=== PATIENT | female | born 1995 | race Caucasian/White ===

== ENCOUNTER 2018-10-04 15:23 | Day surgery (SDC) | payer MEDICAID ==
[~2018-10-04] VITALS: Ht 170.2 cm; Wt 88.9 kg
[~2018-10-04 15:23] MED LIST: None per pt
[2018-10-04] MEDS ORDERED: LACTATED RINGERS 1,000 ML IV SCH (15:52)
[2018-10-04 15:53] VITALS: BP 135/57
[2018-10-04 16:18] LABS: HCG UR SG 1.018 (1.003-1.030)
[2018-10-04] MEDS ORDERED: BUPIVACAINE/EPI 0.5% 1:200K ONE (17:58)
[2018-10-04] MEDS ORDERED: MIDAZOLAM 1 MG/ML, 2ML ONE (18:24)
[2018-10-04] MEDS ORDERED: FENTANYL PF 250 MCG/5ML ONE (18:24)
[2018-10-04] MEDS ORDERED: ONDANSETRON 2MG/ML, 2ML ONE (18:25)
[2018-10-04] MEDS ORDERED: DEXAMETHASONE 4 MG/ML, 1ML ONE (18:25)
[2018-10-04] MEDS ORDERED: PROPOFOL 10 MG/ML, 20ML ONE (18:26)
[2018-10-04] MEDS ORDERED: SUCCINYLCHOLINE 20 MG/ML, 10ML ONE (18:26)
[2018-10-04] MEDS ORDERED: ROCURONIUM 10MG/ML,5ML ONE (18:26)
[2018-10-04] MEDS ORDERED: CEFAZOLIN 1,000 MG ONE (18:28)
[2018-10-04] MEDS ORDERED: ALBUTEROL SULFATE 2.5 MG/3 ML NPPB PRN (19:00)
[2018-10-04] MEDS ORDERED: MIDAZOLAM 1 MG/ML, 2ML IV PRN (19:00)
[2018-10-04] MEDS ORDERED: HALOPERIDOL 5 MG/ML IV PRN (19:00)
[2018-10-04] MEDS ORDERED: ONDANSETRON ODT 8 MG PO PRN (19:00)
[2018-10-04] MEDS ORDERED: LABETALOL 5MG/ML, 20ML IV PRN (19:00)
[2018-10-04] MEDS ORDERED: ONDANSETRON 2MG/ML, 2ML IV PRN (19:00)
[2018-10-04] MEDS ORDERED: hydrALAzine 20 MG/ML, 1ML IV PRN (19:00)
[2018-10-04] MEDS ORDERED: EPHEDRINE 50 MG/ML, 1ML IVPush PRN (19:00)
[2018-10-04] MEDS ORDERED: OXYcodone 5 MG/5 ML ORAL.SOL UDC PO PRN (19:00)
[2018-10-04] MEDS ORDERED: ACETAMINOPHEN 325 MG TABLET PO PRN (19:00)
[2018-10-04] MEDS ORDERED: FENTANYL PF 100 MCG/2ML IV PRN (19:00)
[2018-10-04] MEDS ORDERED: HYDROmorphone 2 MG/ML, 1ML IVPush PRN (19:00)
[2018-10-04] MEDS ORDERED: PROMETHAZINE 12.5 MG SUPP PR PRN (19:00)
[2018-10-04] MEDS ORDERED: MORPHINE SULFATE 4 MG/ML, 1ML IVPush PRN (19:00)
[2018-10-04] MEDS ORDERED: MEPERIDINE/PF 25MG/0.5ML IVPush PRN (19:00)
[2018-10-04] MEDS ORDERED: PROMETHAZINE 25 MG/ML, 1ML IV PRN (19:00)
[2018-10-04] MEDS ORDERED: DIAZEPAM 5 MG/ML, 10ML VIAL IVPush PRN (19:00)
[2018-10-04] MEDS ORDERED: OXYcodone 5 MG/5 ML ORAL.SOL UDC ONE ×2 (20:33→20:36)
== END 2018-10-04 21:41 | disposition home or self-care (01) ==
LOC: OR 15:23 → 4NOR 20:55 → OR 21:41
PROVIDERS: ATTEND Podiatrist Foot & Ankle Surgery
DX: S82.842A Displaced bimalleolar fracture of left lower leg, initial encounter for closed fracture (principal); F17.210 Nicotine dependence, cigarettes, uncomplicated; X58.XXXA Exposure to other specified factors, initial encounter; Y93.89 Activity, other specified; Y92.89 Other specified places as the place of occurrence of the external cause; Y99.8 Other external cause status
CPT/HCPCS: 27814; 64445; 64447; 73600; 76000; 81025; C1713; J0330; J0690; J1100; J2250; J2405; J2704; J3010; G0378